=== PATIENT | male | born 1975 | race Caucasian/White ===

== ENCOUNTER → 2020-07-25 10:16 | Outpatient (CLI) | payer BC, SELFPAY ==
[2020-07-24 09:27] VITALS: BMI 26.4
== END ==
PROVIDERS: Referring Provider Physician Assistant Surgical; Visit Provider Physician Assistant Surgical
DX: Z20.828 Contact with and (suspected) exposure to other viral communicable diseases (principal)
CPT/HCPCS: 87635; C9803; U0003

== ENCOUNTER 2023-05-04 20:04 | Inpatient (IN) | payer OTHER, SELFPAY ==
[2023-05-04 20:05] VITALS: BP 158/100; PULSE 131; RESP 18; TEMP 37; O2SAT 100; BMI 26.2
--- NOTE | 2023-05-04 20:39 | CT_ITS ---
INDICATION: headache x1 week EXAMINATION: CT BRAIN - CT Head or Brain W/O Contrast Injection TECHNIQUE: Multiple axial images were obtained of the head without intravenous contrast. A radiation dose optimization technique was used for this scan. IV Contrast dosage and agent: None. RADIATION DOSAGE (If Supplied By Facility): CTDIvol = ( 44.99 ) mGy, DLP = ( 812.98 ) mGycm COMPARISON: No relevant prior examinations for comparison FINDINGS: HEMISPHERES: 1. The cerebral parenchyma, ventricular system, subarachnoid spaces have normal configuration and density. There is a normal gyral pattern. There is normal lofton/white differentiation. No midline shift.. 2. The hemispheric white matter has normal appearance. 3. No intraparenchymal mass, hemorrhage, or acute territorial infarct. CEREBELLUM - BRAINSTEM: The cerebellum, brainstem, basilar and suprasellar cisterns have normal appearance. No Chiari malformation. PITUITARY: Infundibulum and pituitary have normal configuration. Midline structures appear normal. CSF SPACES: Appropriate for age. No hydrocephalus. Basal cisterns are patent. VESSELS: 1. No significant vascular calcifications in the cavernous carotid vessels. 2. No hyperdense vascular signs noted.. ORBITS AND PARANASAL SINUSES: 1. Normal appearance of the bony orbits. Normal appearance of the globes and retrobulbar soft tissues.. 2. Paranasal sinuses are clear. BONY ELEMENTS: Bony elements of the cranial vault, facial skeleton and skull base have normal appearance. SCALP AND SOFT TISSUES: Normal appearance of the soft tissues of the scalp and the visualized face OTHER: None ASPECTS Score for Acute Strokes: 10 CT/Brain/Head without Contrast IMPRESSION: 1. Normal CT examination of the brain 2. No intracranial mass, hemorrhage or acute territorial infarct 3. No radiographically significant sinus disease.. Electronically Signed: César Dixon MD at 21:58 EDT ,
--- NOTE | 2023-05-04 20:40 | EX.ED.DYSGE1 ---
HPI History of Present Illness Chief Complaint: Headache Detail of Chief Complaint: Muscle cramping and headache Informant: patient Narrative Narrative: Patient presents to the emergency department with complaint of developing muscle cramps while at work today. Patient states that the pain started in both arms. He then subsequently developed pain in his neck and into his head. Has been having cramping in his abdomen. He denies recent illness. He has had a rash on his body that he has had for over a year and a half and does not know what the rashes. He does not see a primary care physician. No history of brain tumors or family history of brain aneurysms. Patient denies any episodes of vomiting or diarrhea. Patient while at work states that it was humid today and he did work near some muffins but he was trying to stay hydrated and drink plenty of water. PFSH PFSH Home Medications NK 05/04/23 [History Last Taken Unknown] Allergy/AdvReac Type Severity Reaction Status Date / Time nickel Allergy Rash Verified 05/04/23 20:05 Surgical History Fracture of metacarpal of right hand, closed Social History (Updated 07/24/20 @ 11:02 by Hi MARROQUIN, CARA) Smoking Status: Never smoker Smokeless tobacco user: chewing tobacco ROS ROS ED Review of Systems ROS Unobtainable: other Constitutional Constitutional ED: Reports lethargy; Denies chills, fever(s), sweats or weight loss Eyes Eyes: Denies blurry vision, change in vision or diplopia ENT ENT ED: Denies rhinorrhea or sore throat Cardiovascular Cardiovascular: Denies chest pain, orthopnea or racing heartbeat Respiratory/Chest Respiratory/Chest: Denies cough, dyspnea, dyspnea on exertion, orthopnea or sputum Gastrointestinal Gastrointestinal: Reports abdominal pain; Denies diarrhea, nausea or vomiting Genitourinary Genitourinary ED: Denies dysuria, hematuria or urinary frequency Musculoskeletal Musculoskeletal: Reports other Details: Muscle cramping ; Denies arthralgias, back pain, myalgias or neck pain Integumentary Denies abscess, Abrasions or rash Neurologic Neurologic: Reports headache(s); Denies weakness Psychiatric Psychiatric: Denies anxiety, depression or suicidal thoughts Endocrine Endocrinology: Denies polydipsia, polyphagia or polyuria Hematologic/Lymphatic Hematologic/Lymphatic: Denies easy bleeding, easy bruising or lymphadenopathy Allergic/Immunologic Allergic/Immunologic ED: Denies mouth swelling, tongue swelling or urticaria EXAM Physical Exam Const Vital Signs: 05/04/23 20:05 05/04/23 20:49 05/04/23 22:18 Temperature 98.6 F Temperature Source Temporal Pulse Rate 131 H Respiratory Rate 18 Respiratory Effort Normal Non-Labored Respiratory Pattern Normal Blood Pressure 158/100 H 141/101 H Blood Pressure Mean 119 114 Pulse Ox 100 Oxygen Delivery Method Room Air Positive well nourished and well developed General Appearance ED: well developed and NAD HEENT Reports TM's clear and moist mucous membranes normocephalic and atraumatic; Negative for trauma or tenderness Tympanic Membrane ED: Yes TM's clear Eyes PERRL and EOMs intact bilaterally General Eye ED: Negative for pale conjunctiva or scleral icterus Neck no lymphadenopathy, supple and no JVD General: Negative for tenderness Chest Wall inspection of chest normal and palpation of chest normal Chest: Negative for tenderness Resp normal respiratory effort and clear to auscultation bilaterally Effort and Inspection: Negative for respiratory distress or pain with movement Auscultation: Negative for rhonchi, wheezes or diminished lung sounds Cardio regular rate, regular rhythm, S1 normal heart sound, S2 normal heart sound and no murmurs Peripheral Pulses: pulses 2+ throughout GI normal to inspection, nondistended, normoactive bowel sounds, soft to palpation, non-tender, non-distended and no masses GI Narrative: While evaluating the patient he did have a muscle spasm that I could palpate the right upper rectus abdominal muscle tense and spasm. Back/Spine no CVA tenderness and no thoracic nor lumbar tenderness Extremity normal to inspection General Extremety ED: Negative for edema General Extremity: Negative for edema Neuro oriented x3, CN's II-XII intact bilaterally, no sensory deficits noted and gait normal Sensorium / Orientation: awake, alert, oriented to person, oriented to place and oriented to time Motor Exam: strength 5/5 throughout and strength abnormal Psych mental status grossly normal Skin no rashes or lesions noted and no wounds MDM MDM MDM Narrative Medical decision making narrative: Patient presents to the emergency department with muscle cramping. IV line established on arrival. Patient was given a liter of the same fluid bolus. CBC with differential obtained showed a white count of 15.8 with hemoglobin of 15 and platelet count of 323. Chemistries showed a low potassium of 3.2. BUN was 22 and creatinine 2.49. Magnesium normal at 1.9. CPK elevated 3563. There are no old lab values to compare his kidney function. Recommended admission for fluid hydration and electrolyte management. I suspect the CPK likely elevated secondary to muscle cramping. Case discussed with hospitalist who will evaluate patient for admission. Lab Data Attestation: I reviewed the patient's lab results. Labs: Laboratory Results - last 24 hr 05/04/23 20:50 WBC 15.8 H RBC 5.02 Hgb 15.2 Hct 45.4 MCV 90.4 MCH 30.3 MCHC 33.5 RDW Std Deviation 41.9 RDW Coeff of Che 12.6 Plt Count 323 MPV 10.5 Immature Gran % (Auto) 1.100 H Neut % (Auto) 77.6 H Lymph % (Auto) 12.2 L [place] % (Auto) 7.9 Eos % (Auto) 0.0 Baso % (Auto) 1.2 H Absolute Neuts (auto) 12.3 H Absolute Lymphs (auto) 1.92 Nucleated RBC % 0 Sodium 137 Potassium 3.2 L Chloride 103 Carbon Dioxide 22.0 Anion Gap 12 BUN 22 H Creatinine 2.49 H Estim Creat Clear Calc 45.03 Est GFR (MDRD) Af Amer 36 L Est GFR (MDRD) Non-Af 30 L BUN/Creatinine Ratio 8.8 L Glucose 120 H Calcium 9.4 Magnesium 1.9 Total Creatine Kinase 3563 H Radiography Diagnostic Testing: Clinical Impression(s) from Imaging Studies Brain CT 05/04/23 20:39 IMPRESSION: 1. Normal CT examination of the brain 2. No intracranial mass, hemorrhage or acute territorial infarct 3. No radiographically significant sinus disease.. Electronically Signed: César Dixon MD at 21:58 EDT , EKG Initial EKG: Attestation: I personally reviewed and interpreted this EKG as follows: Comments: Sinus rhythm with a rate of [address] changes Discharge Plan Triage Chief Complaint: Headache ED Provider: Johnnie Aguirre Dx/Rx/DC Orders Clinical Impression: LORE (acute kidney injury), Rhabdomyolysis, Dehydration, Hypokalemia Prescriptions: No Action NK Primary Care Provider: Care Physician,No Primary Referrals: Care Physician,No Primary [Primary Care Provider] - Disposition Disposition: Acute Care [facility]
[2023-05-04 21:00] LABS: Absolute Lymphocyte Count 1.92 X10^3/uL (0.83-4.51); Absolute Neutrophil Count 12.3 X10^3/uL (2.0-7.7); Basophil# 0.19 X10^3/uL; Basophil% 1.2 % (0-1); Hematocrit 45.4 % (40-54); Hemoglobin 15.2 g/dL (13.0-16.5); Lymphocyte # 1.92 X10^3/ul (0.83-4.51); Lymphocyte % 12.2 % (19-41); Mean Corp Hgb Conc 33.5 g/dL (32-36); Mean Corpuscular Hgb 30.3 pg (27.0-32.0); Mean Corpuscular Volume 90.4 fL (80-94); Mean Platelet Vol. 10.5 fl (6.2-12.0); Monocyte# 1.24 X10^3/uL; Monocyte% 7.9 % (0-10); NRBC Flagged by Analyzer 0 % (0-5); Neutrophil # 12.27 X10^3/uL (2.7-7.7); Neutrophil % 77.6 % (47-70); Platelet Count 323 K/mm3 (150-450); RBC Distribution Width CV 12.6 % (11.6-14.6); RBC Distribution Width SD 41.9 fl (35.1-43.9); Red Blood Count 5.02 M/mm3 (4.6-6.2); White Blood Count 15.8 K/mm3 (4.4-11.0)
[2023-05-04] MEDS: 0.9% Normal Saline 1,000 ML 150 ML IV (21:00)
[2023-05-04 21:14] LABS: Anion Gap 12 (5-15); BUN 22 mg/dL (7-18); BUN/Creat Ratio 8.8 RATIO (10-20); Calcium,Total 9.4 mg/dL (8.5-10.1); Chloride 103 mmol/L (98-107); Creatinine, Serum 2.49 mg/dL (0.70-1.30); EST Glomerular Filtration Rate 30 mL/min (>60); Est Glom Filt Rate - Afr Amer 36 mL/min (>60); Estimated Creatinine Clearance 45.03 ml/min; Glucose 120 mg/dL (74-106); Magnesium 1.9 mg/dL (1.6-2.6); Potassium 3.2 mmol/L (3.5-5.1); Sodium Level 137 mmol/L (136-145)
--- NOTE | 2023-05-04 21:19 | EKG12_ITS ---
Test Reason : Blood Pressure : / mmHG Vent. Rate : 096 BPM Atrial Rate : 096 BPM P-R Int : 138 ms QRS Dur : 080 ms QT Int : 334 ms P-R-T Axes : 059 024 020 degrees QTc Int : 421 ms Normal sinus rhythm Nonspecific T wave abnormality Abnormal ECG Confirmed by MISSY SUAREZ ([id number]), pictures editor ROBERTA BRUCE ([id number]) on 05/09/2023 9:37:41 AM Referred By: Paul Pablo Confirmed By:MISSY SUAREZ
[2023-05-04] MEDS: Potassium Chloride Oral Tablet 20 MEQ 40 MEQ PO (21:44)
[2023-05-04 22:00] LABS: CPK Total, Creatine Kinase 3563 U/L (39-308)
[2023-05-04 22:18] VITALS: BP 141/101
[2023-05-04] MEDS: 0.9% Normal Saline 1,000 ML 999 ML IV (22:48)
--- NOTE | 2023-05-04 23:14 | PCM.HP.STD ---
HPI - General General Date of Admission: 05/04/23 Date of Service: 05/04/23 Chief Complaint: Muscle cramping and soreness HPI Narrative VALERIE MEHTA, is a 47 M who presents to the emergency room with chief complaint of muscle cramping and soreness. This began at work earlier today when he had pain across his chest radiating to both arms and neck causing a headache. He does have a chronic rash of upper extremities that he has not been treated for and has had this for the past year and a half apparently. Laboratory studies are remarkable for an elevated creatinine of 2.5 and CK of greater than 3000. Patient denies any chest pain, shortness of breath fevers or chills at present time. He denies any previous history of kidney problems. Upon further questioning it is difficult to ascertain how much the patient has had to drink earlier today. He will be admitted for treatment of acute kidney injury and rhabdomyolysis. [facility] Home Medications NK 05/04/23 [History Last Taken Unknown] Allergy/AdvReac Type Severity Reaction Status Date / Time nickel Allergy Rash Verified 05/04/23 20:05 Surgical History Fracture of metacarpal of right hand, closed Social History (Updated 07/24/20 @ 11:02 by Hi MARROQUIN, CARA) Smoking Status: Never smoker Smokeless tobacco user: chewing tobacco ROS Constitutional Constitutional: Denies chills or fever(s) Eyes Eyes: Denies change in vision ENT HEENT: Denies abnormal hearing Respiratory/Chest Respiratory/Chest: Denies cough Gastrointestinal Gastrointestinal: Reports abdominal pain Genitourinary Genitourinary: Denies dysuria Musculoskeletal Musculoskeletal: Reports extremity pain, muscle weakness, neck pain and stiffness Integumentary Integumentary: Denies dry skin Neurologic Neurologic: Denies abnormal gait or abnormal speech Psychiatric Psychiatric: Reports anxiety Endocrine Endocrinology: Denies change in body appearance Vital Signs Vital Signs Vital Signs: 05/04/23 20:05 05/04/23 20:49 05/04/23 22:18 Temperature 98.6 F Temperature Source Temporal Pulse Rate 131 H Respiratory Rate 18 Respiratory Effort Normal Non-Labored Respiratory Pattern Normal Blood Pressure 158/100 H 141/101 H Blood Pressure Mean 119 114 Pulse Ox 100 Oxygen Delivery Method Room Air Weight Weight: 215 lb 4.8 oz Body Mass Index (BMI) 26.2 Physical Exam Const oriented x3 General Appearance: cooperative HEENT normocephalic and head/scalp atraumatic Eyes PERRL Neck no lymphadenopathy Lymph Lymphatic: no lymphadenopathy noted Resp normal respiratory effort, normal air movement and clear to auscultation bilaterally Cardio regular rate, regular rhythm, S1 normal heart sound and S2 normal heart sound GI normal to inspection, nondistended, normoactive bowel sounds Extremity Extremity Narrative: Generalized tenderness of upper extremity and neck. Range of motion intact Skin Skin Narrative: Maculopapular rash present upper extremities and venous stasis changes present bilaterally lower extremities on the shins numerous tattoos of upper extremity noted Neuro no focal motor deficits and no sensory deficits noted Psych cooperative and affect normal Results Lab / Micro Data 05/04/23 20:50 05/04/23 20:50 Labs: Laboratory Results - last 24 hr 05/04/23 20:50: WBC 15.8 H, RBC 5.02, Hgb 15.2, Hct 45.4, MCV 90.4, MCH 30.3, MCHC 33.5, RDW Std Deviation 41.9, RDW Coeff of Che 12.6, Plt Count 323, MPV 10.5, Immature Gran % (Auto) 1.100 H, Neut % (Auto) 77.6 H, Lymph % (Auto) 12.2 L, [place] % (Auto) 7.9, Eos % (Auto) 0.0, Baso % (Auto) 1.2 H, Absolute Neuts (auto) 12.3 H, Absolute Lymphs (auto) 1.92, Nucleated RBC % 0, Sodium 137, Potassium 3.2 L, Chloride 103, Carbon Dioxide 22.0, Anion Gap 12, BUN 22 H, Creatinine 2.49 H, Estim Creat Clear Calc 45.03, Est GFR (MDRD) Af Amer 36 L, Est GFR (MDRD) Non-Af 30 L, BUN/Creatinine Ratio 8.8 L, Glucose 120 H, Calcium 9.4, Magnesium 1.9, Total Creatine Kinase 3563 H Radiology Impression Brain CT 05/04/23 20:39 IMPRESSION: 1. Normal CT examination of the brain 2. No intracranial mass, hemorrhage or acute territorial infarct 3. No radiographically significant sinus disease.. Electronically Signed: César Dixon MD at 21:58 EDT , Assessment & Plan Assessment/Plan (1) Hypokalemia: (2) Dehydration: (3) Rhabdomyolysis: (4) LORE (acute kidney injury): PLAN: Plan 1 acute kidney injury/rhabdomyolysis secondary to dehydration likely working in hot environment earlier today?admit patient to general medical floor, aggressive IV hydration with normal saline at 150 cc/h, repeat CBC, BMP and CK in a.m. 2. DVT prophylaxis?SCDs Charges/Coding Visit Charges Inpatient E&M: 50064 Init Hosp L2
[2023-05-04 23:47] VITALS: BP 132/88; PULSE 82; RESP 16; TEMP 36.7
[2023-05-05 00:30] VITALS: BMI 25.0
[2023-05-05 00:35] VITALS: BP 122/84; PULSE 80; RESP 17; TEMP 36.4; O2SAT 100
[2023-05-05] MEDS: 0.9% Normal Saline 1,000 ML 150 ML IV (01:43)
[2023-05-05] MEDS: 0.9% Saline Lock 10 ML Syringe IV (01:44)
[2023-05-05 01:47] VITALS: BP 121/93; PULSE 83; RESP 18; TEMP 36.6; O2SAT 100
[2023-05-05 04:33] VITALS: BP 116/79; PULSE 70; RESP 16; TEMP 36.3; O2SAT 99
[2023-05-05 07:01] LABS: Absolute Neutrophil Count 5.9 X10^3/uL (2.0-7.7); Basophil# 0.18 X10^3/uL; Basophil% 1.6 % (0-1); Eosinophils% 2.7 % (0-5); Hematocrit 38.3 % (40-54); Hemoglobin 12.6 g/dL (13.0-16.5); Lymphocyte % 30.9 % (19-41); Mean Corp Hgb Conc 32.9 g/dL (32-36); Mean Corpuscular Hgb 30.7 pg (27.0-32.0); Mean Corpuscular Volume 93.4 fL (80-94); Mean Platelet Vol. 10.5 fl (6.2-12.0); Monocyte# 1.14 X10^3/uL; Monocyte% 10.4 % (0-10); NRBC Flagged by Analyzer 0 % (0-5); Neutrophil # 5.92 X10^3/uL (2.7-7.7); Neutrophil % 53.9 % (47-70); Platelet Count 258 K/mm3 (150-450); RBC Distribution Width CV 12.7 % (11.6-14.6); RBC Distribution Width SD 43.7 fl (35.1-43.9)
[2023-05-05 07:29] LABS: Anion Gap 3 (5-15); BUN 18 mg/dL (7-18); BUN/Creat Ratio 14.2 RATIO (10-20); Calcium,Total 8.1 mg/dL (8.5-10.1); Chloride 110 mmol/L (98-107); Creatinine, Serum 1.27 mg/dL (0.70-1.30); EST Glomerular Filtration Rate 65 mL/min (>60); Est Glom Filt Rate - Afr Amer 78 mL/min (>60); Estimated Creatinine Clearance 90.62 ml/min; Glucose 107 mg/dL (74-106); Potassium 3.4 mmol/L (3.5-5.1); Sodium Level 139 mmol/L (136-145)
[2023-05-05 07:59] LABS: CPK Total, Creatine Kinase 2460 U/L (39-308)
[2023-05-05 09:39] VITALS: BP 101/68; PULSE 72; RESP 18; TEMP 36.4; O2SAT 99
[2023-05-05] MEDS: Potassium Chloride Oral Tablet 20 MEQ 60 MEQ PO (09:43)
--- NOTE | 2023-05-05 10:48 | CASEMGMT ---
GARETH MENDEZ Assessment: Face to Face with pt for initial transition planning/care coordination assessment. RN VANESSA introduced self and role at [facility], pt voices understanding and consents to assessment. Pt is A/O x4 and answers all questions appropriately at this time. Care providers, pharmacy, and demographics verified/updated. Admitting Dx: acute kidney injury, rhabdomyolysis PCP:Pt states he has an appt with a new PCP on Aug 04 at [facility]. He is unsure of the name of the physician but states it is a female. Specialists:Pt denies Preferred Pharmacy:[facility] Insurance: [employer] Prescription Benefit: yes LNOK: Maryana Horton, mother Living Arrangements: Pt lives with mother in a single story home with 1 step to enter. Pt reports he is I in ADL's and denies concerns at home. Transportation: Pt drives self and denies concerns with transportation. DME/HHC/SNF: Pt denies having any DME in the home, previous HHC or SNF stays. Pt states no concerns with going home at time of dc. Pt states no further concerns/needs. CM to follow. Advised pt to ask CM if any further question/concerns/needs arise, voices understanding. Pt Goal: Home Plan: Home
[2023-05-05 14:26] VITALS: BP 110/74; PULSE 68; RESP 18; TEMP 36.4; O2SAT 94
[2023-05-05 15:15] LABS: Anion Gap 6 (5-15); BUN 15 mg/dL (7-18); CPK Total, Creatine Kinase 1681 U/L (39-308); Calcium,Total 7.8 mg/dL (8.5-10.1); Chloride 111 mmol/L (98-107); Creatinine, Serum 1.07 mg/dL (0.70-1.30); EST Glomerular Filtration Rate 79 mL/min (>60); Est Glom Filt Rate - Afr Amer 95 mL/min (>60); Estimated Creatinine Clearance 107.56 ml/min; Glucose 108 mg/dL (74-106); Potassium 3.8 mmol/L (3.5-5.1); Sodium Level 141 mmol/L (136-145)
--- NOTE | 2023-05-05 15:36 | DCINST_ITS ---
Discharge Instructions Diet Discharge Diet: No restrictions Activity Discharge Activity: Return to Normal Activity Weight Bearing Status: Full weight bearing Follow Up Care Test Results: Test results from this visit will be discussed in further detail at your follow- up appointment, if applicable. Discharge Plan Admission Admit Date/Time: 05/04/23 23:21 Primary Reason for Your Visit: LORE, mild rhabdomyolysis Attending Provider: Peña Magallon Primary Care Provider: Care Physician,No Primary Consulting Providers: Paul Pablo Instructions Additional Instructions / Restrictions: Continue to push intake of electrolyte rich drinks as we discussed. Strongly recommend establishing with an outpatient primary care doctor. Would recommend following up with a PCP in 1 to 2 weeks for repeat labs to assure continued improvement. Discharge Orders/Prescriptions Prescriptions: No Action NK Referrals / Follow Up: Care Physician,No Primary [Primary Care Provider] - Disposition Disposition (needs filled in before D/C Order can be placed): Home, Self Care
--- NOTE | 2023-05-05 15:39 | DCINST_ITS ---
Discharge Instructions Diet Discharge Diet: No restrictions Activity Discharge Activity: Return to Normal Activity Return to work on:: 05/11/23 Weight Bearing Status: Full weight bearing Follow Up Care Test Results: Test results from this visit will be discussed in further detail at your follow- up appointment, if applicable. Discharge Plan Admission Admit Date/Time: 05/04/23 23:21 Primary Reason for Your Visit: LORE, mild rhabdomyolysis Attending Provider: Peña Magallon Primary Care Provider: Care Physician,No Primary Consulting Providers: Paul Pablo Instructions Additional Instructions / Restrictions: Continue to push intake of electrolyte rich drinks as we discussed. Strongly recommend establishing with an outpatient primary care doctor. Would recommend following up with a PCP in 1 to 2 weeks for repeat labs to assure continued improvement. Discharge Orders/Prescriptions Prescriptions: No Action NK Referrals / Follow Up: Care Physician,No Primary [Primary Care Provider] - Disposition Disposition (needs filled in before D/C Order can be placed): Home, Self Care
--- NOTE | 2023-05-05 15:41 | DS.PCM_ITS ---
Providers Date of Admission: 05/04/23 Date of Discharge: 05/05/23 Primary Care Physician: No Primary Care Phys Reason For Visit: ACUTE KIDNEY INJURY, RHABDOMYOLYSIS Diagnosis Discharge Diagnosis (1) Hypokalemia: Status: Acute Code(s): E87.6 - Hypokalemia (2) Dehydration: Status: Acute Code(s): E86.0 - Dehydration (3) Rhabdomyolysis: Status: Acute Code(s): M62.82 - Rhabdomyolysis (4) LORE (acute kidney injury): Status: Acute Code(s): N17.9 - Acute kidney failure, unspecified Medications at Discharge Home Medications NK 05/04/23 Hospital Course Operations None Procedures - (CT head without contrast) Summary of Care Provided Minutes Spent on Discharge: 22 Hospital Course: Patient is a 47-year-old male with no significant past medical history who presented to [facility] on 05/04/[facility]23 with muscle cramping and soreness. Stated that he had musculoskeletal chest pain radiating to both arms and into his neck causing a headache that started at work earlier in the day. CT head without contrast in the ED was negative for any intracranial pathology. Was found to have a creatinine kinase level of 3563 and a creatinine of 2.49. Was treated with aggressive IV fluids with full resolution of his LORE. CK level had decreased to 1600 prior to discharge. Patient was ambulating around the room without any issue prior to discharge. Recommended to patient that he continue to push electrolyte rich fluids at home after discharge. Also recommended that patient establish with an patient PCP, as he has not seen one in many years. Discharge diagnoses: LORE, resolved Mild rhabdomyolysis, improved Headache Total clinical time spent by myself addressing the patient's discharge needs: 22 minutes. Physical Exam Const alert, oriented x3, no apparent distress, average body habitus, healthy appearing and well nourished Constitutional Narrative: Pleasant male, sitting comfortably in bed, conversing normally, no acute distress. General Appearance: cooperative, comfortable, well kempt and well developed HEENT normocephalic, head/scalp atraumatic, hearing grossly normal bilaterally, nasal mucous membranes and turbinates normal and moist oral mucous membranes Eyes PERRL, EOMs intact bilaterally and conjunctivae normal Neck full ROM, no lymphadenopathy and supple Lymph Lymphatic: no lymphadenopathy noted Chest inspection of chest normal Resp normal respiratory effort, normal air movement, no use of accessory muscles and clear to auscultation bilaterally Cardio regular rate, regular rhythm, no murmurs and peripheral pulses 2+ throughout GI normal to inspection, nondistended, normoactive bowel sounds, soft to palpation, non-tender and non-distended Back/Spine normal ROM Back/Spine Narrative: Mild tenderness to palpation in occipital area and upper cervical area. Extremity normal to inspection, full ROM and no pedal edema Skin no rashes or lesions noted Psych mental status grossly normal Weight / BMI Weight Weight: 95.8 kg Body Mass Index (BMI) 25.0 ABG / Lab / Microbiology Data 05/05/23 06:43 05/05/23 14:25 Laboratory: Laboratory Results - last 24 hr 05/04/23 20:50: WBC 15.8 H, RBC 5.02, Hgb 15.2, Hct 45.4, MCV 90.4, MCH 30.3, MCHC 33.5, RDW Std Deviation 41.9, RDW Coeff of Che 12.6, Plt Count 323, MPV 10.5, Immature Gran % (Auto) 1.100 H, Neut % (Auto) 77.6 H, Lymph % (Auto) 12.2 L, [place] % (Auto) 7.9, Eos % (Auto) 0.0, Baso % (Auto) 1.2 H, Absolute Neuts (auto) 12.3 H, Absolute Lymphs (auto) 1.92, Nucleated RBC % 0, Sodium 137, Potassium 3.2 L, Chloride 103, Carbon Dioxide 22.0, Anion Gap 12, BUN 22 H, Creatinine 2.49 H, Estim Creat Clear Calc 45.03, Est GFR (MDRD) Af Amer 36 L, Est GFR (MDRD) Non-Af 30 L, BUN/Creatinine Ratio 8.8 L, Glucose 120 H, Calcium 9.4, Magnesium 1.9, Total Creatine Kinase 3563 H 05/05/23 06:43: WBC 11.0, RBC 4.10 L, Hgb 12.6 L, Hct 38.3 L, MCV 93.4, MCH 30.7, MCHC 32.9, RDW Std Deviation 43.7, RDW Coeff of Che 12.7, Plt Count 258, MPV 10.5, Immature Gran % (Auto) 0.500, Neut % (Auto) 53.9, Lymph % (Auto) 30.9, [place] % (Auto) 10.4 H, Eos % (Auto) 2.7, Baso % (Auto) 1.6 H, Absolute Neuts (auto) 5.9, Absolute Lymphs (auto) 3.40, Nucleated RBC % 0, Sodium 139, Potassium 3.4 L, Chloride 110 H, Carbon Dioxide 26.0, Anion Gap 3 L, BUN 18, Creatinine 1.27, Estim Creat Clear Calc 90.62, Est GFR (MDRD) Af Amer 78, Est GFR (MDRD) Non-Af 65, BUN/Creatinine Ratio 14.2, Glucose 107 H, Calcium 8.1 L, Total Creatine Kinase 2460 H 05/05/23 14:25: Sodium 141, Potassium 3.8, Chloride 111 H, Carbon Dioxide 24.0, Anion Gap 6, BUN 15, Creatinine 1.07, Estim Creat Clear Calc 107.56, Est GFR (MDRD) Af Amer 95, Est GFR (MDRD) Non-Af 79, BUN/Creatinine Ratio 14.0, Glucose 108 H, Calcium 7.8 L, Total Creatine Kinase 1681 H Radiography Diagnostic Testing: Radiology Impression Brain CT 05/04/23 20:39 IMPRESSION: 1. Normal CT examination of the brain 2. No intracranial mass, hemorrhage or acute territorial infarct 3. No radiographically significant sinus disease.. Electronically Signed: César Dixon MD at 21:58 EDT Reading Location ID and State: [address] [place] [address] Tel , Service support , D/C Instructions Discharge Diet: No restrictions Return to work on: 05/11/23 Weight Bearing Status: Full weight bearing Meaningful Use Info Meaningful Use Diagnoses (Choose all that apply): None applicable Discharge Plan Admission Admit Date/Time: 05/04/23 23:21 Primary Reason for Your Visit: LORE, mild rhabdomyolysis Attending Provider: Peña Magallon Primary Care Provider: Care Physician,No Primary Consulting Providers: Paul Pablo Instructions Additional Instructions / Restrictions: Continue to push intake of electrolyte rich drinks as we discussed. Strongly recommend establishing with an outpatient primary care doctor. Would recommend following up with a PCP in 1 to 2 weeks for repeat labs to assure continued improvement. Discharge Orders/Prescriptions Prescriptions: No Action NK Referrals / Follow Up: Care Physician,No Primary [Primary Care Provider] - Disposition Disposition (needs filled in before D/C Order can be placed): Home, Self Care Charges/Coding Visit Charges Inpatient E&M: 51869 Disch Hosp
== END 2023-05-05 16:22 | disposition home or self-care (01) | DRG 683 ==
LOC: ED 22:25 → MS3 05-05 04:25
PROVIDERS: Admitting Provider Family Medicine; Emergency Provider Emergency Medicine; Referring Provider Family Medicine; Visit Provider Hospitalist
DX: N17.9 Acute kidney failure, unspecified (principal); M62.82 Rhabdomyolysis; F17.220 Nicotine dependence, chewing tobacco, uncomplicated; R51.9 Headache, unspecified
CPT/HCPCS: 36415; 70450; 80048; 82550; 83735; 85025; 93005; 99285; J7030; A4216